=== PATIENT | female | born 1955 ===

== ENCOUNTER 2017-06-11 07:27 | Day surgery (SDC) | payer MEDICARE, OTHER ==
[2017-06-11 07:52] VITALS: BMI 27.2
[2017-06-11] MEDS ORDERED: Lactated Ringer's 500 ML IV ONE (09:37)
--- NOTE | 2017-06-11 09:38 | CP.SDSHP ---
Same Day Surgery H & P - History Proposed Procedure: colonoscopy Pre-Op Diagnosis: screening - Previous Medical/Surgical History Endocrine/Metabolic: Diabetes - Allergies Allergies: Allergies No Known Allergies Allergy (Verified 06/11/17 07:51) - Physical Exam General Appearance: NAD Vital Signs: Vital Signs 06/11/17 07:58 Temperature 97.5 F L Pulse Rate 81 Respiratory 17 Rate Blood Pressure 115/81 O2 Sat by Pulse 97 Oximetry Mental Status: Alert & Oriented x3 Neuro: WNL Heart: WNL Lungs: WNL GI: WNL - {Optional Preform as Required} Abdomen: WNL - Impression Pt. Evaluated Today:Candidate for Anesthesia & Procedure: Yes - Date & Time Date: 06/11/17 Time: 09:38 Short Stay Discharge - Short Stay Discharge Admitting Diagnosis/Reason for Visit: ENCOUNTER FOR SCREENING FOR MALIGNANT NEOPLASM OF Disposition: HOME/ ROUTINE
[2017-06-11] MEDS ORDERED: Propofol 10 mg/ml Inj (20 ML) ONE (09:41)
[2017-06-11 09:47] VITALS: O2SAT 100
[2017-06-11] MEDS ORDERED: Lidocaine Hydrochloride 5 ML INJ ONE (09:52)
[2017-06-11] MEDS ORDERED: Lactated Ringer's 500 ML IV SCH (10:00)
[2017-06-11 10:17] VITALS: TEMP 97.8
[2017-06-11 10:23] VITALS: RESP 13
[2017-06-11 10:57] VITALS: BP 126/76; PULSE 69
== END 2017-06-11 10:55 | disposition home or self-care (01) ==
LOC: C.ENDO 07:27
PROVIDERS: ATTEND Internal Medicine Gastroenterology
DX: K64.8 Other hemorrhoids (principal)
CPT/HCPCS: 45378; 82948; J2704; J7120